=== PATIENT | female | born 1965 | race African-American/Black ===

== ENCOUNTER → 2017-04-29 | Outpatient (CLI) | payer BC ==
--- NOTE | ~2017-04-29 | MY11 ---
[facility] A Service of [facility] RADIOLOGY TEXT RESULTS PATIENT: MAGDALENA MAURER LOCATION: [facility] : 63 UNIT #: [id number] AGE: [address]: Keith Angel MD SEX: F ORDER DR: [id number] [facility]. [place], [place] [address] [id number] O MR#: [id number] Acc #: [id number] NAME: MAGDALENA MAURER : 1965 SEX: F STUDY DATE/TIME: 04/29/2017 8:50 UNIT: [facility] ROOM: STUDY DESCRIPTION: MY Mammogram Screening Dig [place] Attending Physician: Keith Angel M.D. Referring Physician: Keith Angel M.D. Ordering Physician: Keith Angel M.D. Primary Care Physician: Keith Angel M.D. MEDICAL IMAGING REPORT This report is preliminary unless electronic signature is present EXAM Digital screening mammogram 04/29/2017. HISTORY A 51-year-old woman positive family history, grandmother age 86. Annual screening. Comparison mammograms 12/25/2010, 12/27/11, 02/09/15 Digital imaging of each breast was completed utilizing screening protocol. Review includes FDA-approved CAD device. 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 There is no interval occurring mass. I see no suspicious microcalcifications and no suspicious architectural deformity. IMPRESSION Benign mammogram. Stable duct ectasia. Right breast. Annual screening recommended. BIRADS 2 Patients over the age of 40 are entered into a reminder system with target due date for the next mammogram. A result letter will also be sent to the patient. BIRADS: 2 Benign Finding Dictated by... Neil Paige M.D. THIS IS AN ELECTRONICALLY VERIFIED REPORT Neil Paige M.D. at 04/29/2017 2:25 PM [facility] A Service of [facility] RADIOLOGY TEXT RESULTS PATIENT: MAGDALENA MAURER LOCATION: [facility] : 63 UNIT #: [id number] AGE: [address]: Keith Angel MD SEX: F ORDER DR: Harini TD: 04/29/2017 12:17 JOB #: [id number] MEDICAL IMAGING REPORT Page 1 of 1 COPY
== END | disposition home or self-care (01) ==
LOC: CWCC 08:24
DX: Z12.31 Encounter for screening mammogram for malignant neoplasm of breast (principal); Z80.3 Family history of malignant neoplasm of breast
CPT/HCPCS: G0202